=== PATIENT | male | born 1985 | race Caucasian/White ===

== ENCOUNTER 2021-08-22 14:24 | Emergency (ER) | payer OTHER ==
[~2021-08-22] VITALS: Ht 175.3 cm; Wt 103.0 kg
--- OUTSIDE RECORDS SUMMARY | 2021-08-22 16:38 | XMS ---
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 ED/UCC VISIT TRACKING (12 MO.) 08/22/2021 14:26 [facility] [place] TYPE: Emergency COMPLAINT: - CHEST PAIN, SOB, NUMBNESS L ARM, WEAKNESS 03/11/2021 19:54 [facility] COMPLAINT: - Walk In_VOMITTING, SOB, BODY ACHES - COUGH - SHORTNESS OF BREATH - NAUSEA WITH VOMITING UNSPECIFIED DIAGNOSES: 0. Shortness of breath 1. COVID-19 5. Personal history of nicotine dependence 03/04/2021 20:41 [facility] [place] TYPE: Emergency DIAGNOSES: - FEVER - COVID-19 02/16/2021 20:09 [facility] DIAGNOSES: - COVID SCREENING - Bronchitis, not specified as acute or chronic 12/13/2020 22:56 [facility] [place] TYPE: Emergency DIAGNOSES: - Strain of unspecified muscle(s) and tendon(s) at lower leg level, right leg, initial encounter - knee pain INPATIENT VISIT TRACKING (12 MO.) No inpatient visits to display in this time frame [email or web address]
--- NOTE | 2021-08-23 21:00 | EKG ---
[facility] [address] [place], [place] [address] Signed Normal sinus rhythm with sinus arrhythmia Normal ECG No previous ECGs available Confirmed by DENNIS HUNTER DO ([id number]) on 08/23/2021 9:00:25 PM Electronically Signed By: DENNIS HUNTER DO 08/23/21 2100 PATIENT NAME: AMBER GREEN [place] Electrocardiogram DATE OF : 89 PHYSICIAN: DENNIS HUNTER DO REPORT #: [id number] REPORT IS CONFIDENTIAL AND NOT TO BE RELEASED WITHOUT AUTHORIZATION
== END 2021-08-22 16:00 | disposition home or self-care (01) ==
LOC: ED 14:24
DX: R09.1 Pleurisy (principal); J45.909 Unspecified asthma, uncomplicated; I10 Essential (primary) hypertension; Z88.0 Allergy status to penicillin; Z88.7 Allergy status to serum and vaccine; Z88.5 Allergy status to narcotic agent
CPT/HCPCS: 36415; 71045; 84484; 93005; 93010; 99285-25; A9270

== ENCOUNTER 2021-09-30 20:39 | Emergency (ER) | payer OTHER ==
[~2021-09-30] VITALS: Ht 175.3 cm; Wt 103.0 kg
--- OUTSIDE RECORDS SUMMARY | 2021-09-30 20:46 | XMS ---
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 TOTAL 6 NOTE: Visits indicate total known visits. ED/UCC VISIT TRACKING (12 MO.) 09/30/2021 20:39 [facility] [place] TYPE: Emergency COMPLAINT: - FLU SYMPTOMS 08/22/2021 14:26 [facility] [place] TYPE: Emergency COMPLAINT: - CHEST PAIN, SOB, NUMBNESS L ARM, WEAKNESS DIAGNOSES: - Allergy status to serum and vaccine - Essential (primary) hypertension - Unspecified asthma, uncomplicated - Allergy status to narcotic agent - Other chest pain - Allergy status to penicillin - Pleurisy [facility]11[facility]2021 19:[facility] COMPLAINT: - Walk In_VOMITTING, SOB, BODY ACHES - COUGH - SHORTNESS OF BREATH - NAUSEA WITH VOMITING UNSPECIFIED DIAGNOSES: 0. Shortness of breath 1. COVID-19 5. Personal history of nicotine dependence 03/04[facility]2021 20:[facility] DIAGNOSES: - FEVER - COVID-19 02/16/2021 20:09 [facility] [place] TYPE: Emergency DIAGNOSES: - COVID SCREENING - Bronchitis, not specified as acute or chronic 12/13/2020 22:56 [facility] [place] TYPE: Emergency DIAGNOSES: - Strain of unspecified muscle(s) and tendon(s) at lower leg level, right leg, initial encounter - knee pain INPATIENT VISIT TRACKING (12 MO.) No inpatient visits to display in this time frame [email or web address]
== END 2021-09-30 22:12 | disposition home or self-care (01) ==
LOC: ED 20:39
DX: J10.1 Influenza due to other identified influenza virus with other respiratory manifestations (principal); Z88.0 Allergy status to penicillin; J45.909 Unspecified asthma, uncomplicated; I10 Essential (primary) hypertension; Z88.7 Allergy status to serum and vaccine; Z88.5 Allergy status to narcotic agent; Z20.822 Contact with and (suspected) exposure to COVID-19
CPT/HCPCS: 99284; A9270; U0003